=== PATIENT | male | born 1985 | race Two or more races ===

== ENCOUNTER 2016-06-03 09:38 | Emergency (ER) | payer SELFPAY ==
[~2016-06-03] VITALS: Ht 180.3 cm; Wt 127.0 kg
[2016-06-03 09:45] VITALS: BP 148/92
== END 2016-06-03 12:29 | disposition left against medical advice (07) ==
LOC: ER 09:38
DX: M79.605 Pain in left leg (principal); Z53.21 Procedure and treatment not carried out due to patient leaving prior to being seen by health care provider

== ENCOUNTER 2016-06-03 17:09 | Emergency (ER) | payer MEDICAID, OTHER ==
[~2016-06-03] VITALS: Ht 180.3 cm; Wt 90.7 kg
[2016-06-03 19:50] VITALS: BP 168/89
[2016-06-03] MEDS ORDERED: PROMETHAZINE HCL 25 MG/ML 1ML IM ONE (20:15)
[2016-06-03] MEDS ORDERED: HYDROmorphone HCL 2 MG/ML VL IM ONE (20:15)
== END 2016-06-03 20:38 | disposition home or self-care (01) ==
LOC: EDBD 17:09 → ER 17:16
DX: S70.12XA Contusion of left thigh, initial encounter (principal); M54.16 Radiculopathy, lumbar region; G89.29 Other chronic pain; M54.5 Low back pain; F12.10 Cannabis abuse, uncomplicated; X58.XXXA Exposure to other specified factors, initial encounter; Y93.02 Activity, running; Y92.89 Other specified places as the place of occurrence of the external cause; Y99.8 Other external cause status
CPT/HCPCS: 73552; 96372; 99284; J1170; J2550

== ENCOUNTER 2017-01-05 10:06 | Inpatient (IN) | payer SELFPAY ==
[~2017-01-05] VITALS: Ht 180.3 cm; Wt 125.2 kg
[2017-01-05] MEDS ORDERED: ONDANSETRON HCL 4 MG/2 ML VIAL IV ONE (10:45)
[2017-01-05] MEDS ORDERED: ASPirin-EC 81 mg tab PO ONE (10:45)
[2017-01-05] MEDS ORDERED: MORPHINE SULF INJ 2 MG/ML SYRINGE 1ML IV ONE (10:45)
[2017-01-05 10:49] LABS: Basophils # (auto) 0.2 uL; Basophils % (auto) 1.4 % (0.0-2.0); CONDITION Y; DEFINITIVE SEE PRINTOUT; Eosinophils # (auto) 0 uL; Eosinophils % (auto) 0.1 % (0.0-7.0); Hematocrit 31.3 % (41.0-53.0); Hemoglobin 9.6 g/dL (13.5-17.5); Lymphocytes # (auto) 2.4 uL; Lymphocytes % (auto) 20.9 % (10.0-50.0); Mean Corpuscular Hemoglobin 17.9 pg (28.0-32.0); Mean Corpuscular Hgb Conc. 30.6 g/dL (32.0-36.0); Mean Corpuscular Volume 58.4 fL (80.0-100.0); Mean Platelet Volume 7.4 fL (7.4-10.4); Monocytes # (auto) 0.9 uL; Monocytes % (auto) 7.9 % (0.0-12.0); Neutrophils # (auto) 7.8 uL; Neutrophils % (auto) 69.7 % (37.0-80.0); Platelet Count (auto) 528 10^3/uL (140-450); Red Cell Distribution Width 19.2 % (11.6-16.0); White Blood Cell 11.3 10^3/uL (4.4-10.8)
[2017-01-05 11:01] LABS: INR 1.03 (0.9-1.15); Partial Thromboplastin Time 25.2 sec (22.64-33.71); Prothrombin Time 11.2 sec (9.37-12.3)
[2017-01-05 11:05] LABS: Albumin 4.2 g/dL (3.4-5.0); Calcium 9.1 mg/dL (8.5-10.1); Magnesium 2.3 mg/dL (1.6-2.6); Potassium 3.4 mmol/L (3.5-5.1)
[2017-01-05 11:08] LABS: Anisocytosis Moderate; Hypochromia Moderate
[2017-01-05 11:09] LABS: Microcytosis Moderate; Platelet Estimate Increased
[2017-01-05 11:17] LABS: Cholesterol 171 mg/dL (< 200); HDL Cholesterol 54 mg/dL (40-59); LDL Cholesterol 106 mg/dL (< 100); Triglycerides 106 mg/dL (< 150)
[2017-01-05] MEDS ORDERED: POTASSIUM CHL 20 Meq TABLET PO ONE (11:30)
[2017-01-05 11:32] LABS: Bilirubin, Total 0.7 mg/dL (0.2-1.0); Total Protein 7.8 g/dL (6.4-8.2)
[2017-01-05] MEDS ORDERED: NITROGLYCERIN 0.4 MG SL TAB SL PRN ×2 (11:45→12:15)
[2017-01-05] MEDS ORDERED: MORPHINE SULF INJ 2 MG/ML SYRINGE 1ML IV PRN (12:15)
[2017-01-05] MEDS ORDERED: HYDROcodone-ACET 5/325MG TAB PO PRN (12:15)
[2017-01-05] MEDS ORDERED: LACTULOSE 20Gm/30ML SOLN PO PRN (12:15)
[2017-01-05] MEDS ORDERED: ACETAMINOPHEN 500 MG TAB PO PRN (12:15)
[2017-01-05] MEDS ORDERED: TEMAZEPAM 15 MG CAP PO PRN (12:15)
[2017-01-05] MEDS ORDERED: MORPHINE SULFATE 4 MG/ML SYRG IV PRN (12:15)
[2017-01-05] MEDS ORDERED: PANTOPRAZOLE 40 MG/10 ML VIAL IV ONE (12:15)
[2017-01-05] MEDS ORDERED: LORazepam 0.5 MG TAB PO PRN (12:15)
[2017-01-05] MEDS ORDERED: PROMETHAZINE HCL 25 MG/ML 1ML IV PRN (12:15)
[2017-01-05] MEDS ORDERED: NITROGLYCERIN 0.2MG/HR TOPICAL PATCH TD SCH (12:30)
[2017-01-05] MEDS: SOD CHL 0.9%/ KCL 40MEQ 1,000 ML IV SCH ×2 (12:35→21:46)
[2017-01-05] MEDS: METOPROLOL TARTRATE 25 MG TAB PO SCH ×2 (12:52→21:47)
[2017-01-05] MEDS: ENALAPRIL MALEATE 10 MG TAB PO SCH (12:53)
[2017-01-05] MEDS ORDERED: HEPARIN DRIP/D5W 100UNITS/ML 250 ML IV SCH ×2 (14:24→14:45)
[2017-01-05] MEDS ORDERED: HEPARIN SODIUM (PORCINE) 5000 UNITS/ML 1ML VIAL IV ONE ×2 (14:30→14:45)
[2017-01-05] MEDS ORDERED: IOHEXOL 350 MG/ML 100ML IJ ONE ×2 (15:09→16:21)
[2017-01-05] MEDS ORDERED: LIDOCAINE 2%HCL (LOCAL ANESTH.) INJ 20ML MDV ONE (15:10)
[2017-01-05] MEDS ORDERED: ANGIOMAX 250 MG VIAL IV ONE (15:44)
[2017-01-05] MEDS ORDERED: fentaNYL CITRATE 100 MCG/2 ML VL ONE (15:44)
[2017-01-05] MEDS ORDERED: EPTIFIBATIDE INJ (2MG/ML) 10ML VIAL IV ONE (15:45)
[2017-01-05] MEDS ORDERED: SODIUM CHL 0.9% 0 ML ONE (15:45)
[2017-01-05] MEDS ORDERED: MIDAZOLAM HCL 1MG/1ML-2 ML VIAL ONE (15:45)
[2017-01-05 20:23] LABS: Hematocrit 30.5 % (41.0-53.0); Hemoglobin 9.2 g/dL (13.5-17.5)
[2017-01-05 20:49] LABS: Partial Thromboplastin Time 25.1 sec (22.64-33.71); Prothrombin Time 10.9 sec (9.37-12.3)
[2017-01-05 22:00] VITALS: BP 122/66
[2017-01-05] MEDS ORDERED: ATORVASTATIN 20 MG TAB PO SCH (22:00)
[2017-01-06 01:00] LABS: Hemoglobin 8.8 g/dL (13.5-17.5)
[2017-01-06] MEDS: SOD CHL 0.9%/ KCL 40MEQ 1,000 ML IV SCH (04:25)
[2017-01-06 05:00] VITALS: BP 123/73
[2017-01-06 06:01] LABS: Basophils # (auto) 0 uL; Basophils % (auto) 0.4 % (0.0-2.0); CONDITION Y; DEFINITIVE SEE PRINTOUT; Eosinophils # (auto) 0.1 uL; Eosinophils % (auto) 0.8 % (0.0-7.0); Hematocrit 29.4 % (41.0-53.0); Lymphocytes # (auto) 2.1 uL; Lymphocytes % (auto) 21.2 % (10.0-50.0); Mean Corpuscular Hemoglobin 18.1 pg (28.0-32.0); Mean Corpuscular Hgb Conc. 30.6 g/dL (32.0-36.0); Mean Corpuscular Volume 59.1 fL (80.0-100.0); Mean Platelet Volume 7.9 fL (7.4-10.4); Monocytes # (auto) 0.9 uL; Monocytes % (auto) 9.1 % (0.0-12.0); Neutrophils # (auto) 6.9 uL; Neutrophils % (auto) 68.5 % (37.0-80.0); Platelet Count (auto) 450 10^3/uL (140-450); Red Cell Distribution Width 19.3 % (11.6-16.0); White Blood Cell 10.1 10^3/uL (4.4-10.8)
[2017-01-06 06:30] LABS: Albumin 3.6 g/dL (3.4-5.0); Bilirubin, Total 0.7 mg/dL (0.2-1.0); Calcium 8.6 mg/dL (8.5-10.1); Potassium 4.1 mmol/L (3.5-5.1); Total Protein 7.3 g/dL (6.4-8.2)
[2017-01-06 08:00] VITALS: BP 136/72
[2017-01-06] MEDS: METOPROLOL TARTRATE 25 MG TAB PO SCH (10:00)
[2017-01-06] MEDS: ENALAPRIL MALEATE 10 MG TAB PO SCH (10:00)
[2017-01-06] MEDS ORDERED: PANTOPRAZOLE 40 MG TAB PO SCH (10:00)
[2017-01-06 12:00] VITALS: BP 149/92
[2017-01-06] MEDS ORDERED: ENA10T PO (13:57)
[2017-01-06] MEDS ORDERED: METO25TA3 PO (13:57)
[2017-01-06] MEDS ORDERED: PANT40TA2 PO (13:57)
[2017-01-06] MEDS ORDERED: ATOR20TA50 PO (13:57)
[2017-01-06] MEDS ORDERED: ASP81EC PO (13:57)
[2017-01-06 14:25] VITALS: BP 128/59
== END 2017-01-06 17:35 | disposition home or self-care (01) | DRG 281 ==
LOC: ER 10:06 → TELE 10:07 → TELE-WESTW 18:24
PROVIDERS: ADMIT Internal Medicine; ATTEND Internal Medicine
PROC: 4A023N7 Measurement of Cardiac Sampling and Pressure, Left Heart, Percutaneous Approach (ICD-10-PCS; principal; 2017-01-05)
PROC: B2111ZZ Fluoroscopy of Multiple Coronary Arteries using Low Osmolar Contrast (ICD-10-PCS; 2017-01-05)
PROC: B2151ZZ Fluoroscopy of Left Heart using Low Osmolar Contrast (ICD-10-PCS; 2017-01-05)
DX: I21.4 Non-ST elevation (NSTEMI) myocardial infarction (principal); I51.81 Takotsubo syndrome; E66.9 Obesity, unspecified; K21.9 Gastro-esophageal reflux disease without esophagitis; E87.6 Hypokalemia; D64.9 Anemia, unspecified; Z68.38 Body mass index [BMI] 38.0-38.9, adult; Z83.3 Family history of diabetes mellitus; I25.110 Atherosclerotic heart disease of native coronary artery with unstable angina pectoris; F10.20 Alcohol dependence, uncomplicated; Z87.11 Personal history of peptic ulcer disease
CPT/HCPCS: 36415; 71020; 80053; 80061; 82550; 83735; 84484; 85014; 85018; 85025; 85045; 85379; 85610; 85652; 85730; 86141; 86850; 86900; 86901; 93005; 93306; 93458; 94761; 96365; 96375; C9113; J2250; J2405

== ENCOUNTER 2018-05-14 17:48 | Emergency (ER) | payer SELFPAY ==
[~2018-05-14] VITALS: Ht 180.3 cm; Wt 125.2 kg
[~2018-05-14 17:48] MED LIST: ASP81EC PO; ATOR20TA50 PO; ENA10T PO; METO25TA4 PO; PANT40TA2 PO
[2018-05-14 17:52] VITALS: BP 138/89
[2018-05-14] MEDS ORDERED: IBUPROFEN 800 MG TAB PO ONE (23:30)
== END 2018-05-15 00:20 | disposition home or self-care (01) ==
LOC: ER 17:50
DX: S92.324A Nondisplaced fracture of second metatarsal bone, right foot, initial encounter for closed fracture (principal); S92.344A Nondisplaced fracture of fourth metatarsal bone, right foot, initial encounter for closed fracture; F12.10 Cannabis abuse, uncomplicated; S92.331A Displaced fracture of third metatarsal bone, right foot, initial encounter for closed fracture; W01.0XXA Fall on same level from slipping, tripping and stumbling without subsequent striking against object, initial encounter; Y93.89 Activity, other specified; Y99.8 Other external cause status; Y92.89 Other specified places as the place of occurrence of the external cause
CPT/HCPCS: 29515; 73630

== ENCOUNTER 2019-03-03 15:54 | Emergency (ER) | payer MEDICAID ==
[~2019-03-03] VITALS: Ht 180.3 cm; Wt 121.1 kg
[~2019-03-03 15:54] MED LIST changes: -ENA10T PO; +ENAL10TA PO; +METO25TA36 PO; -METO25TA4 PO
[2019-03-03 16:03] VITALS: BP 146/86
[2019-03-03] MEDS ORDERED: TETRACAINE HCL 0.5% OPTH(EYE) SOLN 4ML RIGHTEYE ONE (19:00)
[2019-03-03] MEDS ORDERED: FLUORESCEIN SOD 1 MG TEST STRIP RIGHTEYE ONE (19:00)
[2019-03-03] MEDS ORDERED: TETANUS-DIPTH-ACEL PERTUSSIS 0.5ML SYRG IM ONE (19:30)
== END 2019-03-03 19:48 | disposition home or self-care (01) ==
LOC: ER 15:54
DX: T15.91XA Foreign body on external eye, part unspecified, right eye, initial encounter (principal); Z79.82 Long term (current) use of aspirin; Z79.899 Other long term (current) drug therapy; X58.XXXA Exposure to other specified factors, initial encounter; Y93.89 Activity, other specified; Y99.8 Other external cause status; Y92.89 Other specified places as the place of occurrence of the external cause
CPT/HCPCS: 65205; 90471; 90715

== ENCOUNTER 2020-11-10 23:55 | Emergency (ER) | payer MEDICAID, OTHER ==
[~2020-11-10] VITALS: Ht 180.3 cm; Wt 125.2 kg
[~2020-11-10 23:55] MED LIST changes: -ASP81EC PO; +ASPI-394 PO; -ENAL10TA PO; +ENAL10TA12 PO
[2020-11-10 23:58] VITALS: BP 130/87
[2020-11-11] MEDS ORDERED: TETRACAINE HCL 0.5% OPTH(EYE) SOLN 4ML LEFTEYE ONE (02:30)
[2020-11-11] MEDS ORDERED: FLUORESCEIN SOD OPTH TEST STRIP LEFTEYE ONE (02:30)
[2020-11-11] MEDS ORDERED: TETANUS-DIPTH-ACEL PERTUSSIS 0.5ML SYR Tdap IM ONE (03:30)
== END 2020-11-11 03:40 | disposition home or self-care (01) ==
LOC: ER 23:58
DX: T15.92XA Foreign body on external eye, part unspecified, left eye, initial encounter (principal); X58.XXXA Exposure to other specified factors, initial encounter; Y93.89 Activity, other specified; Y92.89 Other specified places as the place of occurrence of the external cause; Y99.8 Other external cause status
CPT/HCPCS: 65222; 90471; 90715

== ENCOUNTER 2020-12-22 00:06 | Emergency (ER) | payer OTHER ==
[~2020-12-22] VITALS: Ht 180.3 cm; Wt 127.0 kg
[2020-12-22] MEDS ORDERED: TETANUS-DIPTH-ACEL PERTUSSIS 0.5ML SYR Tdap IM ONE (04:30)
[2020-12-22 06:43] VITALS: BP 124/90
== END 2020-12-22 06:42 | disposition home or self-care (01) ==
LOC: ER 00:09
DX: S01.01XA Laceration without foreign body of scalp, initial encounter (principal); Z79.82 Long term (current) use of aspirin; Z79.899 Other long term (current) drug therapy; W18.39XA Other fall on same level, initial encounter; Y93.89 Activity, other specified; Y92.89 Other specified places as the place of occurrence of the external cause; Y99.8 Other external cause status
CPT/HCPCS: 12002; 70450; 72125

== ENCOUNTER 2020-12-31 07:11 | Emergency (ER) | payer OTHER ==
[~2020-12-31] VITALS: Ht 180.3 cm; Wt 125.2 kg
[2020-12-31 07:52] VITALS: BP 140/83
== END 2020-12-31 08:28 | disposition home or self-care (01) ==
LOC: ER 07:11
DX: S01.01XD Laceration without foreign body of scalp, subsequent encounter (principal); Z79.82 Long term (current) use of aspirin; Z79.899 Other long term (current) drug therapy; X58.XXXD Exposure to other specified factors, subsequent encounter

== ENCOUNTER 2021-08-18 21:03 | Inpatient (IN) | payer MEDICAID, OTHER ==
[~2021-08-18] VITALS: Ht 177.8 cm; Wt 125.2 kg
[2021-08-18] MEDS ORDERED: SODIUM CHLORIDE 0.9% 1,000 ML IV ONE (22:30)
[2021-08-18 23:09] LABS: Basophils # (auto) 0.1 10 ^3/uL (0-0.2); Eosinophils # (auto) 0 10 ^3/uL (0-0.8); Hematocrit 10.9 % (41.0-53.0); Lymphocytes # (auto) 2.1 10 ^3/uL (0.4-5.4); Monocytes # (auto) 0.8 10 ^3/uL (0-1.3); White Blood Cell 8.7 10^3/uL (4.4-10.8)
[2021-08-18 23:11] LABS: Eosinophils % (auto) 0.6 % (0.0-7.0); Lymphocytes % (auto) 23.6 % (10.0-50.0); Mean Corpuscular Hemoglobin 15.8 pg (28.0-32.0); Mean Corpuscular Hgb Conc. 29.7 g/dL (32.0-36.0); Mean Corpuscular Volume 53.1 fL (80.0-100.0); Monocytes % (auto) 9.1 % (0.0-12.0); Neutrophils # (auto) 5.7 10 ^3/uL (1.6-8.6); Neutrophils % (auto) 65.7 % (37.0-80.0); Nucleated Red Blood Cells % 1.1 %; Red Blood Cells 2.05 10^6/uL (4.5-5.90); Red Cell Distribution Width 18.7 % (11.8-14.3)
[2021-08-18 23:19] LABS: Hemoglobin 3.2 g/dL (13.5-17.5)
[2021-08-18 23:26] LABS: Albumin 3.5 g/dL (3.4-5.0); BUN/Creatinine Ratio 22.2; Calcium 8.2 mg/dL (8.5-10.1)
[2021-08-18 23:31] LABS: Total Protein 6.6 g/dL (6.4-8.2)
[2021-08-19] VITALS (25 sets, daily range): BP systolic 114–139; BP diastolic 44–91
[2021-08-19] MEDS ORDERED: PANTOPRAZOLE 80 MG in SODIUM CHL 0.9% 100 ML IV ONE (00:30)
[2021-08-19] MEDS ORDERED: FAMOTIDINE (10MG/ML) 2ML VL IV ONE (00:30)
[2021-08-19] MEDS ORDERED: diphenhdrAMINE HCL 25 MG CAP PO PRN (00:30)
[2021-08-19 01:38] LABS: INR 1.13 (0.9-1.15)
[2021-08-19] MEDS ORDERED: IOHEXOL 300 MG/ML 100ML BOTTLE IJ ONE (01:47)
[2021-08-19] MEDS ORDERED: ONDANSETRON HCL 4 MG/2 ML VIAL IV ONE (05:45)
[2021-08-19] MEDS ORDERED: PANTOPRAZOLE 40 MG/10 ML VIAL INJ IV ONE (06:30)
[2021-08-19 08:20] LABS: Basophils # (auto) 0.1 10 ^3/uL (0-0.2); Eosinophils # (auto) 0 10 ^3/uL (0-0.8); Hematocrit 17.6 % (41.0-53.0); Mean Corpuscular Hemoglobin 20.5 pg (28.0-32.0); Mean Corpuscular Hgb Conc. 31.7 g/dL (32.0-36.0)
[2021-08-19 08:24] LABS: Basophils % (auto) 1.5 % (0.0-2.0); Eosinophils % (auto) 0.7 % (0.0-7.0); Lymphocytes # (auto) 1.3 10 ^3/uL (0.4-5.4); Lymphocytes % (auto) 18.7 % (10.0-50.0); Mean Corpuscular Volume 64.7 fL (80.0-100.0); Monocytes # (auto) 0.7 10 ^3/uL (0-1.3); Monocytes % (auto) 9.7 % (0.0-12.0); Neutrophils # (auto) 4.8 10 ^3/uL (1.6-8.6); Neutrophils % (auto) 69.4 % (37.0-80.0); Nucleated Red Blood Cells % 0.9 %; Red Blood Cells 2.72 10^6/uL (4.5-5.90); White Blood Cell 6.9 10^3/uL (4.4-10.8)
[2021-08-19 08:39] LABS: Red Cell Distribution Width 34.4 % (11.8-14.3)
[2021-08-19 08:43] LABS: Hemoglobin 5.6 g/dL (13.5-17.5)
[2021-08-19] MEDS ORDERED: D5W/SOD CHL 0.45% 1,000 ML IV ONE (09:00)
[2021-08-19] MEDS ORDERED: ACETAMINOPHEN 325 MG TAB PO PRN ×2 (09:00)
[2021-08-19] MEDS ORDERED: MORPHINE SULFATE INJECTION 2 MG/ML SYRG IV PRN (09:00)
[2021-08-19] MEDS ORDERED: PANTOPRAZOLE 40mg/50ML NS AE 50 ML IV SCH (09:00)
[2021-08-19] MEDS ORDERED: LORATADINE 10 MG TAB PO ONE (09:00)
[2021-08-19] MEDS ORDERED: NITROGLYCERIN 0.4 MG SL TAB SL PRN (09:00)
[2021-08-19] MEDS ORDERED: PROMETHAZINE HCL 25 MG/ML 1ML IV PRN (09:00)
[2021-08-19 09:22] LABS: % Iron Saturation 3.4 % (20-55)
[2021-08-19 10:12] LABS: INR 1.12 (0.9-1.15); Partial Thromboplastin Time 23.6 sec (23.6-33.0)
[2021-08-19 14:53] LABS: Ferritin 2.3 ng/mL (10-322)
[2021-08-22 13:33] LABS: Folate (Folic Acid) > 24.00 ng/mL (5.38-24)
== END 2021-08-19 14:08 | disposition left against medical advice (07) | DRG 253 ==
LOC: ER 21:10 → TELE 08-19 08:52
PROVIDERS: ADMIT Hospitalist; ATTEND Hospitalist
PROC: 30233N1 Transfusion of Nonautologous Red Blood Cells into Peripheral Vein, Percutaneous Approach (ICD-10-PCS; principal; 2021-08-19)
DX: K92.2 Gastrointestinal hemorrhage, unspecified (principal); D50.0 Iron deficiency anemia secondary to blood loss (chronic); Z53.29 Procedure and treatment not carried out because of patient's decision for other reasons; Z82.49 Family history of ischemic heart disease and other diseases of the circulatory system; Z83.3 Family history of diabetes mellitus; Z87.11 Personal history of peptic ulcer disease; Z20.822 Contact with and (suspected) exposure to COVID-19
CPT/HCPCS: 36415; 36430; 71045; 74177; 80053; 82607; 82728; 82746; 83540; 83550; 83615; 84484; 85025; 85045; 85610; 85730; 86850; 86900; 86901; 86920; 93005; 96361; 96365; 96366; 96367; 96375; C9113; G0378; J3490

== ENCOUNTER 2022-10-16 03:29 | Emergency (ER) | payer MEDICAID ==
[~2022-10-16] VITALS: Ht 180.3 cm; Wt 122.7 kg
[~2022-10-16 03:29] MED LIST changes: -ENAL10TA12 PO; +ENAL1TAB46 PO
[2022-10-16 04:11] VITALS: BP 159/97
[2022-10-16] MEDS ORDERED: KETOROLAC TROMETH 60MG/2ML VIAL IM ONE (05:15)
[2022-10-16] MEDS ORDERED: IBUP-1456 PO (05:16)
== END 2022-10-16 05:46 | disposition home or self-care (01) ==
LOC: ER 03:29
DX: S92.411A Displaced fracture of proximal phalanx of right great toe, initial encounter for closed fracture (principal); Z79.82 Long term (current) use of aspirin; Z79.1 Long term (current) use of non-steroidal anti-inflammatories (NSAID); Z79.899 Other long term (current) drug therapy; W20.8XXA Other cause of strike by thrown, projected or falling object, initial encounter; Y93.89 Activity, other specified; Y92.89 Other specified places as the place of occurrence of the external cause; Y99.8 Other external cause status
CPT/HCPCS: 73630; 96372; 99283; J1885

== ENCOUNTER 2023-02-23 04:52 | Emergency (ER) | payer MEDICAID ==
[~2023-02-23] VITALS: Ht 177.8 cm; Wt 116.0 kg
[~2023-02-23 04:52] MED LIST changes: +IBUP-1456 PO
[2023-02-23 06:51] VITALS: BP 161/101; PULSE 67; RESP 18; TEMP 98.3; O2SAT 96
[2023-02-23 07:42] LABS: Alanine Aminotransferase 15 U/L (7-40); Albumin 4.7 g/dL (3.2-4.8); Alkaline Phosphatase 50 U/L (46-116); Anion Gap 6 (5-15); Aspartate Aminotransferase 17 U/L (13-40); BUN/Creatinine Ratio 7.1 (10.0-20.0); Blood Alcohol < 3.0 mg/dL (<10); Blood Urea Nitrogen 7 mg/dL (9-23); Calcium 9.2 mg/dL (8.7-10.4); Carbon Dioxide 25 mmol/L (20-30); Chloride 107 mmol/L (98-107); Glucose 109 mg/dL (74-106); Lipase 57 U/L (12-53); Magnesium 2.1 mg/dL (1.6-2.6); Potassium 3.7 mmol/L (3.5-5.1); Sodium 138 mmol/L (136-145)
[2023-02-23 07:43] LABS: Total Protein 7.5 g/dL (5.7-8.2)
[2023-02-23] MEDS ORDERED: HYDROcodone-ACET 10/325MG TAB PO ONE (07:45)
[2023-02-23 07:49] LABS: INR 1.08 (0.9-1.15); Prothrombin Time 11.3 sec (9.3-11.8)
[2023-02-23 08:34] LABS: Eosinophils # (auto) 0 10 ^3/uL (0-0.8); Lymphocytes # (auto) 1.4 10 ^3/uL (0.4-5.4); Nucleated Red Blood Cells % 0.1 %
[2023-02-23 08:36] LABS: Basophils # (auto) 0 10 ^3/uL (0-0.2); Basophils % (auto) 0.4 % (0.0-2.0); Eosinophils % (auto) 0.1 % (0.0-7.0); Hematocrit 32.7 % (41.0-53.0); Lymphocytes % (auto) 12.6 % (10.0-50.0); Mean Corpuscular Hemoglobin 18.9 pg (28.0-32.0); Mean Corpuscular Hgb Conc. 29.4 g/dL (32.0-36.0); Mean Corpuscular Volume 64.2 fL (80.0-100.0); Monocytes # (auto) 0.7 10 ^3/uL (0-1.3); Monocytes % (auto) 6.5 % (0.0-12.0); Neutrophils % (auto) 80.4 % (37.0-80.0); Red Cell Distribution Width 17.9 % (11.8-14.3); White Blood Cell 11.2 10^3/uL (4.4-10.8)
[2023-02-23 08:37] LABS: Hemoglobin 9.6 g/dL (13.5-17.5)
[2023-02-23 08:40] LABS: Platelet Estimate Adequate
[2023-02-23 08:41] LABS: Hypochromia Marked
[2023-02-23] MEDS ORDERED: FER325T PO (08:54)
[2023-02-23] MEDS ORDERED: HYDR25SU21 PR (08:54)
[2023-02-23] MEDS ORDERED: DOCU-94 PO (08:54)
[2023-02-23] MEDS ORDERED: ACET-1080 PO (08:54)
== END 2023-02-23 08:57 | disposition home or self-care (01) ==
LOC: ER 04:52
DX: K64.4 Residual hemorrhoidal skin tags (principal); D53.9 Nutritional anemia, unspecified; F17.210 Nicotine dependence, cigarettes, uncomplicated; F15.90 Other stimulant use, unspecified, uncomplicated; Z79.1 Long term (current) use of non-steroidal anti-inflammatories (NSAID); Z79.84 Long term (current) use of oral hypoglycemic drugs; Z79.899 Other long term (current) drug therapy
CPT/HCPCS: 36415; 80053; 80320; 82270; 83690; 83735; 85025; 85610; 86850; 86900; 86901